=== PATIENT | female | born 1985 | race Hispanic/Latino ===

== ENCOUNTER 2018-02-09 23:26 | Emergency (ER) | payer SELFPAY ==
[2018-02-10 00:18] LABS: #Eosinphils 0.1 thou/uL (0.0-0.7); #Lymphocytes 3.2 thou/uL (1.20-3.40); #Monocytes 0.5 thou/uL (0.11-0.59); #Neutrophils 4.4 thou/uL (1.40-6.50); %Basophils 0.3 % (0.0-1.0); %Eosinophils 1.4 % (0.0-10.0); %Lymphocytes 38.2 % (21.0-51.0); %Monocytes 6.3 % (0.0-10.0); %Neutrophils 53.7 % (42.0-75.0); Hemoglobin 13.8 g/dL (12.0-16.0); Mean Corpuscular HGB CONC 35.4 g/dL (32.0-36.0); Mean Corpuscular Hemoglobin 31.4 pg (27.0-31.0); Mean Corpuscular Volume 88.6 fl (81.0-99.0); Mean Platelet Volume 8.2 fL (7.4-10.4); Platelet Count 240 thou/uL (130-400); RBC Distribution Width 11.5 % (11.5-14.5); White Blood Cell (WBC) Count 8.3 thou/uL (4.8-10.8)
[2018-02-10 00:35] LABS: BHCG - Serum Negative (NEGATIVE); Pregs Control Background? CLEAR/WHITE (CLR/WHITE); Pregs Control Bar Appear? YES (CONTROL BAR)
[2018-02-10 00:43] LABS: ALT (SGPT) 9 U/L (8-55); AST (SGOT) 11 U/L (5-34); Albumin 4.5 g/dL (3.5-5.0); Alkaline Phosphatase 45 U/L (40-150); Anion Gap 16 mmol/L (10-20); BUN (Urea Nitrogen) 10 mg/dL (7.0-18.7); Bilirubin, Total 0.3 mg/dL (0.2-1.2); CK (CPK) 46 U/L (29-168); Calc. Creatinine Clearance 0 mL/min (70-130); Calcium 9.5 mg/dL (7.8-10.44); Carbon Dioxide 20 mmol/L (22-29); Chloride 106 mmol/L (98-107); Estimated GFR-MDRD Greater than 90; Globulin 3.4 g/dL (2.4-3.5); Glucose 136 mg/dL (70-105); Lipase 37 U/L (8-78); Potassium 3.4 mmol/L (3.5-5.1); Protein, Total 7.9 g/dL (6.0-8.3); Sodium 139 mmol/L (136-145)
[2018-02-10 00:46] LABS: CKMB 0.6 ng/mL (0-6.6); Troponin I Less than 0.010 ng/mL (< 0.028)
--- NOTE | 2018-02-10 08:25 | RAD ---
UPRIGHT PORTABLE CHEST 1 VIEW: Date: 02/09/18 HISTORY: 32-year-old female with history of dyspnea and difficulty breathing. COMPARISON: 05/20/05. FINDINGS: Heart size is normal. The lungs are clear. No pneumonia, edema, or pleural effusion. IMPRESSION: No acute intrathoracic disease. No evidence for pneumonia or other acute process. POS: [facility]
== END 2018-02-10 01:05 | disposition home or self-care (01) ==
LOC: ERS 23:26
DX: F43.0 Acute stress reaction (principal)
CPT/HCPCS: 71045; 80053; 82553; 83690; 84484; 84703; 85025; 93005

== ENCOUNTER 2018-09-23 00:13 | Emergency (ER) | payer SELFPAY ==
[2018-09-23 01:04] LABS: Bilirubin Negative (Negative); Blood, Urine Small (Negative); Clarity CLEAR (Clear); Glucose, Urine (Dipstick) Negative (Negative); Leukocyte Negative (Negative); Nitrite Negative (Negative); Protein, Urine (Dipstick) Negative (Neg-Trace); Specific Gravity, Urine 1.017 (1.002-1.036); Urobilinogen 0.2 mg/dL (0.2-1.0)
[2018-09-23 01:05] LABS: Bacteria/HPF None Seen HPF (None Seen); Hyaline Casts/LPF 0-3 HYALINE CAST LPF (0-3 Hyaline); Pathc Cast-AUWi Flag 0.14 (0-2.49); Squamous Epithelial 0-3 HPF (0-3); WBC/HPF 0-3 HPF (0-3)
[2018-09-23 01:12] LABS: #Basophils 0.1 thou/uL (0.0-0.2); #Eosinphils 0.1 thou/uL (0.0-0.7); #Lymphocytes 3.5 thou/uL (1.20-3.40); #Monocytes 0.7 thou/uL (0.11-0.59); #Neutrophils 4.6 thou/uL (1.40-6.50); %Basophils 0.6 % (0.0-1.0); %Eosinophils 1.3 % (0.0-10.0); %Lymphocytes 38.5 % (21.0-51.0); %Monocytes 8.2 % (0.0-10.0); %Neutrophils 51.5 % (42.0-75.0); Hemoglobin 11.9 g/dL (12.0-16.0); Mean Corpuscular HGB CONC 35.1 g/dL (32.0-36.0); Mean Corpuscular Hemoglobin 30.9 pg (27.0-31.0); Mean Corpuscular Volume 88.2 fL (78.0-98.0); Mean Platelet Volume 8.8 fL (7.4-10.4); Platelet Count 222 thou/uL (130-400); RBC Distribution Width 11.5 % (11.5-14.5); Red Blood Cell (RBC) Count 3.84 mill/uL (4.20-5.40)
--- NOTE | 2018-09-23 16:49 | ULT ---
PRELIMINARY REPORT/[facility]/EMERGENTY AFTER-HOURS PROCEDURE US First Trimester, Transabdominal and US Duplex Artery and Vein, Ovaries, Complete EXAM DATE/TIME: 09/23/2018 2:58 AM CLINICAL HISTORY: 33 years old, female; Pain; Other: Cramping, +preg; Gestational age or lmp: 7wks; ; Prior surgery; Surgery date: 6+ months; Surgery type: TECHNIQUE: Real-time transabdominal obstetrical ultrasound of the maternal pelvis and a first trimester pregnanc y, less than 14 weeks 0 days, with image documentation. Real-time duplex ultrasound scan of the arter ial and venous flow of the ovaries with B-mode, color Doppler flow and spectral waveform analysis, complete duplex. COMPARISON: No relevant prior studies available. FINDINGS: Transabdominal obstetrical ultrasound was performed. Duplex ultrasound scan with color Doppler flow a nd spectral waveform analysis was also performed for evaluation of pelvic and ovarian blood flow and torsion. Gestation: Single, living intrauterine gestation. heart rate 145 beats per minute. CRL 1.27 cm, 7w3d. Yolk sac visualized. Placenta/amniotic fluid: Cannot be adequately evaluated due to the early gestational age. Unremarkabl e as visualized. Uterus/cervix: No acute findings. No myometrial mass. Right adnexa: Right ovarian probable corpus luteum. Otherwise unremarkable. Normal duplex of the ovar y. No evidence of torsion. Left adnexa: No acute findings. No mass. Normal duplex of the ovary. No evidence of torsion. Free fluid: No free fluid. IMPRESSION: Single viable intrauterine . No acute findings. Thank you for allowing us to participate in the care of your patient. Dictated and Authenticated by: Jose Barrientos MD 09/23/2018 4:07 AM Central Time ([place] & [place]) FINAL REPORT PELVIC UTLRASOUND: There is a viable single intrauterine . I am in agreement with the preliminary report. POS: [facility]
== END 2018-09-23 04:43 | disposition home or self-care (01) ==
LOC: ERS 00:13
DX: O20.0 Threatened abortion (principal); O99.341 Other mental disorders complicating pregnancy, first trimester; F41.9 Anxiety disorder, unspecified; Z3A.01 Less than 8 weeks gestation of pregnancy
CPT/HCPCS: 36415; 76856; 81003; 81015; 84702; 85025; 86900; 86901

== ENCOUNTER 2018-12-18 14:36 | Outpatient (CLI) | payer OTHER ==
--- NOTE | 2018-12-18 17:30 | ULT ---
ULTRASOUND OBSTETRICAL COMPLETE: 12/18/18 HISTORY: 33-year-old female for complete anatomy, size, and dates. O09.892, supervision of other high risk pregnancies, second trimester. FINDINGS: number: Emerson. lie: Footling breech. Maternal cervix: 4 cm in length and closed. Placenta: Posterior. No placenta previa. Amniotic fluid volume: ROBERTO 9.5 cm. heart rate: 153 bpm The following anatomy is visualized, with no evidence of anomalies: Head, lateral ventricles, cerebellum, nose and lips, spine, upper limbs, lower limbs, four chamber he art, umbilical cord, cord insertion, stomach, kidneys, and bladder. biometry: Head circumference (HC): 17.7 cm 20w 2d Biparietal diameter (BPD): 4.7 cm 20w 2d Abdominal circumference (AC): 17.2 cm 22w 2d Femur length (FL): 3.2 cm 20w 0d Average ultrasound age (AUA): 20w 5d Estimated date of delivery (THONY): 05/02/2019 Last menstrual period (LMP): 07/31/2018 Gestational age by LMP: 20w 0d Estimated weight (EFW): 392 grams +/- 57 grams. IMPRESSION: 1. Live second trimester intrauterine gestation. 2. Estimated gestational age of 20 weeks, 5 days. 3. Footling breech lie. 4. No anatomical abnormalities. jn [] POS: [facility]
== END 2018-12-18 14:37 | disposition home or self-care (01) ==
LOC: BICULT 14:36
PROVIDERS: ATTEND Family Medicine
DX: O09.892 Supervision of other high risk pregnancies, second trimester (principal); O32.8XX0 Maternal care for other malpresentation of fetus, not applicable or unspecified; Z3A.20 20 weeks gestation of pregnancy
CPT/HCPCS: 76805

== ENCOUNTER 2019-02-16 01:51 | Day surgery (SDC) | payer OTHER ==
[2019-02-16 02:25] VITALS: BP 111/58; TEMP 98.7; BMI 26.4
--- NOTE | 2019-02-16 02:38 | PDOC.FPROB ---
R OB H&P: HPI - History of Present Illness Chief Complaint: RLQ pain Indentification: 33 year old History of Present Illness: 33 year old at 28.4 wks with THONY 05/07/2019 presents with gradually worsening lower abdominal pain upon finishing work this evening around 20:00. Patient works as [employer] and is on feet much of the day. Patient states the pain is sharp and radiates from RLQ to RUQ. She states she tried to take a shower and rest in hopes that it would get better, but it seemed to get worse. Patient decided to come to ED for evaluation. She says over the last hour her pain has been minimal. She does not feel it is strong enough for pain medication , including tylenol at this time. Patient denies vaginal bleeding. She does state that she felt her panties were a little wet at the end of work. She never felt a gush of fluid or noticed any leaking after the fact. Patient states she felt like she had two contractions. She denies dysuria, N/V, decreased appetite , fever, chills, shortness of breath, chest pain. Primary Care Physician: Dr. Good FMR OB H&P: Current - Care : 3 Para: 2002 Gestational age: 28.4 wks Due date: 05/07/2019 FMR OB H&P: History - Past Medical History PMH: Denies any pertinent history - OB History OB History: Low transverse C/S x2 - Surgical History Sx History: C/S x2 - Social History Social History: Denies alcohol, tobacco, or drug use FMR OB H&P: Medications - Current Home Medications: Medication Instructions Recorded Confirmed Type Ondansetron [Zofran ODT] 4 mg PO Q6HR PRN 5 Days #20 tab 01/19/19 02/16/19 Rx Vitamin 1 tablet PO DAILY 01/19/19 02/16/19 History Allergies/Adverse Reactions: Allergies Allergy/AdvReac Type Severity Reaction Status Date / Time No Known Allergies Allergy Verified 02/16/19 02:11 FMR OB H&P: ROS - Review of Systems General: denies: fever/chills, weight/appetite/sleep changes, fatigue Eyes: denies: vision changes, double vision ENT: denies: nasal congestion, rhinorrhea, sore throat Cardiovascular: denies: chest pain, palpitation, edema Respiratory: denies: cough, congestion, shortness of breath Gastrointestinal: reports: abdominal pain. denies: indigestion, bloating, nausea, vomiting, diarrhea, constipation Genitourinary (Female): reports: polyuria. denies: dysuria, vaginal discharge, vaginal pain, vaginal bleeding, vaginal pressure Musculoskeletal: denies: pain, stiffness, tenderness Neurologic: denies: numbness, syncope, seizures Integumentary: denies: itching, rash Endocrine: denies: cold intolerance Hematologic/Lymphatic: denies: prolonged or excessive bleeding Psychological: denies: depression, anxiety FMR OB H&P: Vital Signs - Maternal Vital signs: Vital Signs - First Documented Temp Pulse Resp BP 98.7 F 85 16 111/58 L 02/16/19 02:02 02/16/19 02:02 02/16/19 02:02 02/16/19 02:02 - Heart Tones Baseline: 150 Variability: moderate Acceleration: present Deceleration: absent Category: category 1 Buhl contractions every: None FMR OB H&P: Physical Exam - Physical Exam General: NAD, awake, alert and oriented HEENT: MMM, grossly normal vision, grossly normal hearing Heart: RRR General: no respiratory distress, no wheezing, no retractions Abdomen: soft, gravid Musculoskeletal: pulses present, FROM in all four extremities Neurological: cranial nerves II through XII intact Skin: no rash, capillary refill <2 seconds Lymphatic: no unusual bruising or bleeding Psychiatric: intact recent and remote memory, good judgement and insight FMR OB H&P: A/P - Problem List (1) Intrauterine Current Visit: Yes Status: Acute Code(s): Z34.90 - ENCNTR FOR SUPRVSN OF NORMAL , UNSP, UNSP TRIMESTER (2) Abdominal pain affecting Current Visit: Yes Status: Acute Code(s): O26.899 - OTH RELATED CONDITIONS, UNSPECIFIED TRIMESTER; R10.9 - UNSPECIFIED ABDOMINAL PAIN Disposition: 33 year old at 28.4 wks 1. Abdominal pain affecting - Pain has improved without any interventions since arriving to L&D - Located in RLQ, radiating to RUQ - No peritoneal signs - UA negative - Afebrile - CBC and CMP WNL - Given neg UA (no blood) and resolution of pain, low suspicion for kidney stone - Possible round ligament pain - RUQ sono prelim report with small gallbladder polyp. Otherwise WNL. Mild hydro consistent with . - Given that pain is already resolving with no intervention, low suspicion for appendicitis, particularly with no normal vitals and no WBC. - PO hydrate 2. sIUP - Category I strip - No evidence of labor Dispo: Likely round ligament pain vs. gas pain. Patient advised to take 1g Tylenol as needed q6h for pain. Patient advised to follow up with Dr. Good early next week. Patient stable and asymptomatic prior to discharge without any interventions. Discussion: Date/Time: 02/16/19237 This H&P was discussed with Dr. Reese who agrees with the above documentation and plan. Signature: Nallely Palacios, DO PGY-2
[2019-02-16] MEDS ORDERED: Acetaminophen 500 MG TAB PO SCH (02:45)
[2019-02-16 03:02] LABS: Bilirubin Negative (Negative); Blood, Urine Negative (Negative); Clarity TURBID (Clear); Glucose, Urine (Dipstick) Negative (Negative); Leukocyte Negative (Negative); Nitrite Negative (Negative); Protein, Urine (Dipstick) Negative (Neg-Trace); Specific Gravity, Urine 1.015 (1.002-1.036)
[2019-02-16 03:59] LABS: #Eosinphils 0.2 thou/uL (0.0-0.7); #Lymphocytes 2.8 thou/uL (1.20-3.40); #Monocytes 0.9 thou/uL (0.11-0.59); #Neutrophils 6.3 thou/uL (1.40-6.50); %Basophils 0.2 % (0.0-1.0); %Eosinophils 1.8 % (0.0-10.0); %Lymphocytes 26.9 % (21.0-51.0); %Monocytes 9.2 % (0.0-10.0); Hemoglobin 10.7 g/dL (12.0-16.0); Mean Corpuscular HGB CONC 35.3 g/dL (32.0-36.0); Mean Corpuscular Hemoglobin 32.2 pg (27.0-31.0); Mean Corpuscular Volume 91.2 fL (78.0-98.0); Mean Platelet Volume 8.3 fL (7.4-10.4); Platelet Count 205 thou/uL (130-400); RBC Distribution Width 11.9 % (11.5-14.5); Red Blood Cell (RBC) Count 3.34 mill/uL (4.20-5.40); White Blood Cell (WBC) Count 10.2 thou/uL (4.8-10.8)
[2019-02-16 04:23] LABS: ALT (SGPT) 8 U/L (8-55); AST (SGOT) 10 U/L (5-34); Albumin 3.3 g/dL (3.5-5.0); Alkaline Phosphatase 48 U/L (40-150); Anion Gap 13 mmol/L (10-20); BUN (Urea Nitrogen) 9 mg/dL (7.0-18.7); Bilirubin, Total 0.2 mg/dL (0.2-1.2); Calc. Creatinine Clearance 133 mL/min (70-130); Carbon Dioxide 19 mmol/L (22-29); Chloride 108 mmol/L (98-107); Estimated GFR-MDRD Greater than 90; Globulin 2.8 g/dL (2.4-3.5); Glucose 102 mg/dL (70-105); Potassium 3.5 mmol/L (3.5-5.1); Protein, Total 6.1 g/dL (6.0-8.3); Sodium 136 mmol/L (136-145)
--- NOTE | 2019-02-16 07:17 | ULT ---
RIGHT UPPER QUADRANT ULTRASOUND: Date: 02/16/19 INDICATION: Abdominal pain, right-sided, patient. FINDINGS: No shadowing cholelithiasis. There is a rounded focal increased echogenicity along the gallbladder wa ll, nonshadowing, 3-4 mm in size, which could relate to a polyp, versus an adherent, nonshadowing sto ne. Gallbladder wall is borderline. No pericholecystic edema. Cowan's sign reported as negative. There is no focal hepatic lesion or ascites. Common duct measures approximately 6 mm, which is mildly dilated. IMPRESSION: 1. Mildly dilated common duct. Recommend correlation with biliary laboratory values. 2. Probable small gallbladder polyp versus adherent nonshadowing gallstone. There is no sonographic evidence to confirm acute cholecystitis. Correlate clinically. RIGHT LOWER QUADRANT SOFT TISSUE ULTRASOUND: INDICATION: Right-sided abdominal pain. FINDINGS: Sonographic imaging of the right lower quadrant reveals persistent shadowing from bowel. An appendix is not delineated. Incidental note of a partially imaged gestation. IMPRESSION: The appendix is not delineated within the right lower quadrant. Therefore, on the basis of this exam, appendicitis cannot be excluded. Follow-up may be obtained as clinically necessary. POS: [facility]
== END 2019-02-16 05:00 | disposition home or self-care (01) ==
LOC: L&D/OP 01:51
PROVIDERS: ATTEND Family Medicine
DX: O99.89 Other specified diseases and conditions complicating pregnancy, childbirth and the puerperium (principal); R10.31 Right lower quadrant pain; Z3A.28 28 weeks gestation of pregnancy
CPT/HCPCS: 36415; 76705; 80053; 81003; 85025; 99283; A4353

== ENCOUNTER 2019-03-17 01:24 | Day surgery (SDC) | payer OTHER ==
[2019-03-17 02:00] VITALS: BP 107/60; TEMP 97.7; BMI 28.9
--- NOTE | 2019-03-17 02:07 | PDOC.FPROB ---
FMR OB H&P: Medications - Current Home Medications: Medication Instructions Recorded Confirmed Type Ondansetron [Zofran ODT] 4 mg PO Q6HR PRN 5 Days #20 tab 01/19/19 02/16/19 Rx Vitamin 1 tablet PO DAILY 01/19/19 02/16/19 History Cephalexin [Keflex] 500 mg PO BID 5 Days #10 capsule 03/17/19 Rx Allergies/Adverse Reactions: Allergies Allergy/AdvReac Type Severity Reaction Status Date / Time No Known Allergies Allergy Verified 03/17/19 02:00 FMR OB H&P: Vital Signs - Maternal Vital signs: Vital Signs - First Documented Temp Pulse Resp BP Pulse Ox 97.7 F 89 18 107/60 98 03/17/19 01:56 03/17/19 01:56 03/17/19 01:56 03/17/19 01:56 03/17/19 01:56 FMR OB H&P: A/P - Problem List (1) Abdominal pain affecting Current Visit: No Status: Acute Code(s): O26.899 - OTH RELATED CONDITIONS, UNSPECIFIED TRIMESTER; R10.9 - UNSPECIFIED ABDOMINAL PAIN Discussion: Date/Time: 03/17/19 020 PCP: Florentino HPI: This is a 33 yo at 32.5 wks presenting for abdominal pain starting at 1045 tonight. She states she has cramping abdominal pain that started in the suprapubic region and is now radiating to the back. She denies fevers, chills, sweats. She denies N/V/D. She denies burning or blood with urination. She states she thinks it could be contractions because it comes every 5 minutes but does not remember what contractions feels like. She affirms movement, denies ROM, denies bleeding/discharge. Denies KEE, visual changes, SOB, or swelling. History: OB hx: 2 previous term c/s PMH: neg PSH: c/s x2 Meds: PNV All: NKDA Soc Hx: denies smoking, alcohol, drugs Fam Hx: denies downs, congenital defects REVIEW OF SYSTEMS: Gen: no fever, chills, or sweats Neuro: no numbness/tingling, no weakness, denies headache ENT: denies congestion Eyes: no visual changes Resp: no cough, no SOB, no wheeze Card: denies chest pain, no palpitations GI: see hpi : no dysuria, no hematuria Skin: no rash, no erythema Vitals: T: 97.7 R: 18 BP: 107/60 P:89 Sat: 98% on RA PHYSICAL EXAMINATION: General: NAD, alert and oriented x3 HEENT: EOMI, normal sclera Neck: Supple. Full ROM. Heart/Cardiovascular System: RRR, Cap refill < 3 seconds, no rub, no murmur Lungs/Respiratory System: clear to auscultation bilaterally. No increased work of breathing. Room air. Abdomen/Gastro-Intestinal System: no abdominal tenderness, normal bowel sounds, Gravid, no cva tenderness Extremities: Warm extremities. No cyanosis or edema. Neuro: No gross deficits appreciated Psychiatry: Awake, Alert and cooperative with exam Skin: No lesions, rashes Musculoskeletal: Full ROM A/P: This is a 33 yo at 32.5 wks presenting for abdominal pain FHT: baseline 140, good variability, accels present, no decels [place]: no contractions # Urinary tract infection - WBC 8.5, afebrile - Renal US shows no obstruction mild hydronephrosis as expected with , good uretral jets bilaterally - UA with trace blood, stone possible but unlikely - will d/c home with keflex # - spec exam shows closed cervix - amnisure negative - SVE cl/th/high # Anxiety - advised to f/u in clinic to discuss counseling referral Labor precautions discussed at length, questions answered, patient will follow up in clinic this week Addendum - Attending - Attending Attestation Date/Time: 03/17/19 3435 I personally evaluated the patient and discussed the management with Dr. Carreon. I agree with the History, Examination, Assessment and Plan documented above.
[2019-03-17] MEDS ORDERED: Morphine 4 MG/ML VIAL SLOW IVP SCH (02:15)
[2019-03-17] MEDS ORDERED: Lactated Ringer's 1,000 ML IV SCH (02:15)
[2019-03-17 02:32] LABS: Bacteria/HPF 1+ HPF (None Seen); Bilirubin Negative (Negative); Blood, Urine Trace (Negative); Clarity Clear (Clear); Glucose, Urine (Dipstick) Normal (Negative); Leukocyte 250 Leu/uL (Negative); Nitrite Negative (Negative); Protein, Urine (Dipstick) Negative (Neg-Trace); RBC/HPF 0-3 HPF (0-3); Urobilinogen Normal mg/dL (Less than 2); WBC/HPF 21-50 HPF (0-3)
[2019-03-17 03:06] LABS: Hemoglobin 10.5 g/dL (12.0-16.0); Mean Corpuscular HGB CONC 35.2 g/dL (32.0-36.0); Mean Corpuscular Hemoglobin 32.1 pg (27.0-31.0); Mean Corpuscular Volume 91.2 fL (78.0-98.0); Mean Platelet Volume 8.6 fL (7.4-10.4); Platelet Count 181 thou/uL (130-400); RBC Distribution Width 12.2 % (11.5-14.5); Red Blood Cell (RBC) Count 3.28 mill/uL (4.20-5.40); White Blood Cell (WBC) Count 8.5 thou/uL (4.8-10.8)
[2019-03-17 03:10] LABS: Amnisure Internal Control QC ACCEPTABLE (ACCEPTABLE)
[2019-03-17 03:18] LABS: Amnisure Test No Membranes Rupture (No Rupture)
[2019-03-17 03:34] LABS: ALT (SGPT) 7 U/L (8-55); AST (SGOT) 16 U/L (5-34); Albumin 3.3 g/dL (3.5-5.0); Alkaline Phosphatase 58 U/L (40-150); Anion Gap 13 mmol/L (10-20); BUN (Urea Nitrogen) 9 mg/dL (7.0-18.7); Bilirubin, Total 0.3 mg/dL (0.2-1.2); Calc. Creatinine Clearance 151 mL/min (70-130); Carbon Dioxide 21 mmol/L (22-29); Chloride 108 mmol/L (98-107); Estimated GFR-MDRD Greater than 90; Glucose 94 mg/dL (70-105); Potassium 3.5 mmol/L (3.5-5.1); Protein, Total 6.3 g/dL (6.0-8.3); Sodium 138 mmol/L (136-145)
--- NOTE | 2019-03-17 07:46 | ULT ---
RENAL ULTRASOUND: Boswell scale and Doppler color flow imaging utilized. COMPARISON: 01/19/2019. INDICATION: Abdominal pain. History of mild hydronephrosis with clinical suspicion for urinary stone. FINDINGS: There is an intrauterine gestation partially imaged. The right kidney measures 13.1 cm in length and the left kidney 12.9 cm in length. The left kidney i s unremarkable. There is minimal dilatation of the right renal collecting system without overt hydro nephrosis. Urinary bladder is grossly unremarkable. Ureteral jets are elicited bilaterally using Do ppler imaging. IMPRESSION: Trace dilatation of right renal collecting system without overt hydronephrosis. POS: [facility]
== END 2019-03-17 03:45 | disposition home or self-care (01) ==
LOC: L&D/OP 01:24
PROVIDERS: ATTEND Family Medicine
DX: O26.893 Other specified pregnancy related conditions, third trimester (principal); R10.2 Pelvic and perineal pain; O23.43 Unspecified infection of urinary tract in pregnancy, third trimester; O99.343 Other mental disorders complicating pregnancy, third trimester; F41.9 Anxiety disorder, unspecified; Z3A.32 32 weeks gestation of pregnancy
CPT/HCPCS: 36415; 51701; 76770; 80053; 81003; 81015; 84112; 85027; 96360; 96375; 99285; J2270

== ENCOUNTER 2019-04-29 04:30 | Inpatient (IN) | payer OTHER, SELFPAY ==
[2019-04-29] MEDS: Lactated Ringer's 1,000 ML IV SCH ×5 (05:06→21:28)
[2019-04-29 05:35] VITALS: BMI 31.2
[2019-04-29] MEDS ORDERED: CEFAZOLIN 2 GM in Premix Bag 1 BAG IVPB SCH (08:30)
[2019-04-29] MEDS ORDERED: Bicitra 30 ML UDCUP PO SCH (08:30)
[2019-04-29] MEDS ORDERED: Ondansetron PF 4 MG/2 ML Vial IVP PRN ×3 (08:30→20:20)
[2019-04-29] MEDS ORDERED: Promethazine HCl 25 MG/ML VIAL IM PRN ×3 (08:30→20:20)
[2019-04-29] MEDS ORDERED: Butorphanol Tartrate 1 MG/ML VIAL SLOW IVP SCH (08:30)
[2019-04-29] MEDS ORDERED: hydrALAZINE 20 MG/ML VIAL SLOW IVP PRN ×2 (08:30→20:20)
[2019-04-29] MEDS ORDERED: Azithromycin 500 MG in Sodium Chloride 0.9% 250 ML 250 ML IVPB SCH (08:30)
[2019-04-29] MEDS ORDERED: Ondansetron PF 4 MG/2 ML Vial ONE ×3 (08:39→15:48)
[2019-04-29 09:39] LABS: Mean Corpuscular HGB CONC 34.7 g/dL (32.0-36.0); Mean Corpuscular Hemoglobin 31.3 pg (27.0-31.0); Mean Corpuscular Volume 90.1 fL (78.0-98.0); Platelet Count 183 thou/uL (130-400); RBC Distribution Width 12.9 % (11.5-14.5); Red Blood Cell (RBC) Count 3.82 mill/uL (4.20-5.40); White Blood Cell (WBC) Count 8.8 thou/uL (4.8-10.8)
[2019-04-29 10:19] LABS: HBSAg Index 0.16 S/CO (0-0.99); Hep B Surf Ag Non-Reactive S/CO (NonReactive); Syphilis Antibody Nonreactive (Nonreactive); Syphilis Antibody Index 0.06 S/CO (<1.00 Non-Reactive)
[2019-04-29] MEDS ORDERED: Dexamethasone 20 MG/5 ML VIAL ONE (13:01)
[2019-04-29] MEDS ORDERED: ePHEDrine 50 MG/ML VIAL ONE (13:01)
[2019-04-29] MEDS ORDERED: PROPOFOL 200 MG/20 ML VIAL ONE (13:01)
[2019-04-29] MEDS ORDERED: PHENYLEPHRINE-NS 100 MCG/ML 10 ML SYRINGE ONE (13:01)
[2019-04-29] MEDS ORDERED: MORPHINE 5 MG/10 ML PF VIAL ONE (15:47)
[2019-04-29] MEDS ORDERED: Fentanyl 100 MCG/2 ML VIAL ONE (15:47)
[2019-04-29] MEDS ORDERED: ePHEDrine/0.9% NaCl/PF SYRINGE 50 mg/10 ml ONE (15:48)
[2019-04-29] MEDS ORDERED: Ketorolac Tromethamine 30 MG/ML VIAL ONE (15:48)
[2019-04-29] MEDS ORDERED: Dexamethasone 4 mg/ml Vial ONE (15:48)
[2019-04-29] MEDS ORDERED: Oxytocin 10 UNITS/ML VIAL ONE (15:48)
[2019-04-29] MEDS ORDERED: Phenylephrine HCL 10 MG/ML VIAL ONE (15:49)
[2019-04-29] MEDS ORDERED: Midazolam HCl 2 mg/2 ml Vial ONE (16:42)
[2019-04-29] MEDS ORDERED: PROPOFOL 20 ML ONE (17:09)
[2019-04-29] MEDS ORDERED: Ketamine 50 MG/ML (10ML VIAL) ONE (17:14)
[2019-04-29] MEDS ORDERED: Promethazine HCl 25 MG SUPP PR PRN (17:52)
[2019-04-29] MEDS ORDERED: Naloxone HCl 0.4 mg/ml Vial IV PRN (17:52)
[2019-04-29] MEDS ORDERED: HYDROmorphone 2 MG/ML VIAL SLOW IVP PRN (17:52)
[2019-04-29] MEDS ORDERED: Ondansetron HCl/PF 4 MG/2 ML Vial IVP PRN (17:52)
[2019-04-29] MEDS ORDERED: diphenhydrAMINE 50 MG/ML VIAL IVP PRN (17:52)
[2019-04-29] MEDS ORDERED: Naloxone HCl 0.4 mg/ml Vial IVP PRN ×2 (17:52)
[2019-04-29] MEDS ORDERED: L&D-Morphine 4 MG/ML VIAL SLOW IVP PRN (17:52)
[2019-04-29] MEDS ORDERED: Meperidine HCl/PF 25 MG/ML VIAL SLOW IVP PRN (17:52)
[2019-04-29] MEDS ORDERED: Communication Order-Pharmacy FS SCH (18:00)
[2019-04-29] MEDS ORDERED: Tranexamic Acid 1,000 MG/10 ML VIAL ONE ×2 (18:04→18:44)
[2019-04-29] MEDS ORDERED: Tranexamic Acid 1,000 MG in Sodium Chloride 0.9% 250 ML 250 ML IVPB SCH (18:10)
[2019-04-29] MEDS: Tranexamic Acid 1,000 MG, Admixture Fee 1 EACH in Sodium Chloride 0.9% 250 ML 250 ML IVPB SCH ×2 (18:50→19:08)
[2019-04-29] MEDS: metroNIDAZOLE 500 MG in Premix Bag 1 BAG IVPB SCH (19:12)
[2019-04-29] MEDS ORDERED: Meperidine HCl/PF 25 MG/ML VIAL ONE (19:41)
[2019-04-29] MEDS ORDERED: Lanolin Ointment 7 GM TUBE TOP PRN (20:20)
[2019-04-29] MEDS ORDERED: Simethicone Chewable 80 MG TAB PO PRN (20:20)
[2019-04-29] MEDS ORDERED: diphenhydrAMINE 25 MG CAP PO PRN (20:20)
[2019-04-29] MEDS ORDERED: Bisacodyl 10 MG SUPP PR PRN (20:20)
[2019-04-29] MEDS ORDERED: NS / Oxytocin 40 units/1000ml 1,000 ML IV SCH (20:45)
[2019-04-29] MEDS: Ferrous Sulfate 325 MG TAB PO SCH (21:29)
[2019-04-29] MEDS: Docusate Calcium (SURFAK) 240 MG CAP PO SCH (21:29)
[2019-04-29] MEDS ORDERED: Sodium Chloride 0.9% 10 ML ONE (21:49)
[2019-04-29] MEDS: Ketorolac Tromethamine 30 MG/ML VIAL IVP PRN (21:52)
[2019-04-29] MEDS ORDERED: Ibuprofen 800 MG TAB PO SCH (22:00)
--- NOTE | 2019-04-29 23:27 | OP ---
DATE OF PROCEDURE: 04/29/2019 BOAT CARPENTER: None. PREPROCEDURE DIAGNOSIS: Intraoperative obstetric bladder injury. POSTPROCEDURE DIAGNOSIS: Intraoperative obstetric bladder injury. PROCEDURE: Complex cystorrhaphy, 8 cm in length. ANESTHESIA: Epidural anesthesia. COMPLICATIONS: None. FLUIDS: See anesthesia record. BLOOD LOSS: Minimal. SPECIMENS: None. POSTPROCEDURE STATUS: Satisfactory. INDICATIONS FOR PROCEDURE: Ms. Jay Palafox is a 33-year-old female who was undergoing , this is her 3rd . Evidently, there were significant adhesions of the dome of the bladder to the uterus. During the , a large vertical cystotomy was made at the dome extending down the anterior wall of the bladder. This is approximately 8 to 9 cm in length. Urology was consulted for repair of this. PROCEDURE SUMMARY: Upon entering to the operating room, the patient was on the table in a supine position. She was talking to the anesthesia provider. She was under epidural/spinal anesthesia. The low abdomen was opened. The uterus had already been repaired. There was an 8 to 9 cm cystotomy at the dome of the bladder extending down the anterior wall in a vertical orientation. We inspected the bladder and there were no mucosal lesions of concern. We identified both ureteral orifices and the cystotomy was well away from these, the Freed catheter was seen with the balloon inflated. This cystotomy was closed in 2 layers, starting with a 3-0 chromic mucosal layer starting at each apex and meeting in the middle and then a 2nd layer was 2-0 Vicryl starting at each apex and meeting in the middle. A 240 mL of sterile milk was instilled into the bladder at the end of the case and the closure was watertight. A Freed catheter was placed to drainage. This procedure was then turned back over to the primary physician. PLAN: The patient's Freed catheter should remain in place for 7 to 10 days. A cystogram can be performed prior to removal to ensure that it has completely healed. Job ID: [id number]
[2019-04-29] MEDS: CEFAZOLIN 2 GM in Premix Bag 1 BAG IVPB SCH (23:46)
--- NOTE | 2019-04-30 01:32 | OP ---
DATE OF PROCEDURE: 04/29/2019 PREOPERATIVE DIAGNOSES: 1. Term . 2. Previous section x2. 3. Persistent painful contractions. POSTOPERATIVE DIAGNOSES: 1. Term . 2. Previous section x2. 3. Persistent painful contractions. 4. Dense intraabdominal adhesions between the uterine fundus and anterior abdominal wall. PROCEDURE PERFORMED: 1. Repeat low cervical transverse . 2. Bladder repair. DOLL WIG MAKER: . INTRAOPERATIVE CONSULTATION: Dr. Paige. DESCRIPTION OF PROCEDURE: After informed consent was obtained from the patient , she was taken operating room where spinal anesthesia was administered. She was prepped and draped in the usual sterile fashion. A Pfannenstiel incision was created with a #10 scalpel blade and carried down to the fascia. The fascia was nicked in the midline and the fascial incision was extended transversely with Martinez scissors. The superior fascial segment was grasped with Tal and elevated and the underlying rectus muscles were dissected away first bluntly and then sharply. This was repeated with inferior fascial segments. The rectus muscles were elevated with a Tal and were divided sharply in the midline with Martinez scissors. There were dense adhesions bilaterally along both sides of the uterus, which were taken down with Metzenbaum scissors and the Bovie. Metzenbaum scissors were used to dissect away the bladder from the lower uterine segment as much as possible. It was found to be densely adherent to the anterior abdominal wall as well. The bladder blade was inserted. At this point, clear pale yellow urine was noted to be draining into the gustafson catheter tubing. The uterus was entered in a low-transverse fashion with a clean #10 scalpel blade. Clear amniotic fluid was encountered. A hand was placed into the uterus and the vertex was elevated and delivered through the hysterotomy. The hand was removed to allow more space for the vertex to delivery through the abdomen. The head was able to be delivered onto the operative field with fundal pressure. The remainder of the delivered uneventfully. Oropharynx and nares were bulb suctioned. The cord was clamped x2 and a vigorous female was handed to the staff in attendance. Cord blood was obtained. The placenta was manually extracted. The uterus was exteriorized and freed of clots and debris. It was at this point that blood in the Gustafson was noted and examination of the bladder revealed a large defect in the dome of the bladder. Urology was consulted. Please refer to Dr. Paige's intraoperative or operative notes for details. While awaiting the arrival of Dr. Paige, the uterus was repaired with a running locking suture of 0-Vicryl in a single full-thickness layer followed by a series of interrupted [id number] sutures along the hysterotomy for hemostasis, which was observed. The abdomen was copiously irrigated with saline. Adhesions along the posterior uterus were diffusely oozing and Daniela was placed on these areas with hemostasis observed. After repair of the bladder by Dr. Paige, the uterus was returned to the abdomen. Hemostasis of the incision was again observed. Seprafilm was applied to the repaired uterine incision and the anterior uterine fundus. Small bleeders along the rectus muscles were cauterized with the Bovie. The fascia was repaired with a running suture of 0-PDS. Three interrupted sutures of 3-0 Vicryl were placed in the subdermal layer to reapproximate the skin, which was closed with skin odilon. Sponge, instrument counts were correct x3. She tolerated the procedure well and was taken to recovery in stable condition. The infant to the nursery also in stable condition. FINDINGS: Viable female infant, Apgars 9 nine and 9 at one and five minutes. COMPLICATIONS: Laceration of dome of the bladder due to intraabdominal adhesions and adhesions between the bladder and the anterior abdominal wall. EBL: 900 mL. Job ID: [id number] MTDD
[2019-04-30] MEDS: Lactated Ringer's 1,000 ML IV SCH ×6 (01:59→19:46)
[2019-04-30] MEDS: metroNIDAZOLE 500 MG in Premix Bag 1 BAG IVPB SCH ×3 (01:59→17:22)
[2019-04-30] MEDS ORDERED: metroNIDAZOLE 500 MG in Premix Bag 1 BAG IVPB SCH (02:00)
[2019-04-30 04:39] LABS: #Lymphocytes 1.7 thou/uL (1.20-3.40); #Monocytes 1.1 thou/uL (0.11-0.59); #Neutrophils 12.5 thou/uL (1.40-6.50); %Basophils 0.1 % (0.0-1.0); %Eosinophils 0.1 % (0.0-10.0); %Lymphocytes 11.2 % (21.0-51.0); %Monocytes 6.9 % (0.0-10.0); %Neutrophils 81.7 % (42.0-75.0); Hemoglobin 10.2 g/dL (12.0-16.0); Mean Corpuscular HGB CONC 35.7 g/dL (32.0-36.0); Mean Corpuscular Hemoglobin 32.7 pg (27.0-31.0); Mean Corpuscular Volume 91.5 fL (78.0-98.0); Mean Platelet Volume 8.6 fL (7.4-10.4); Platelet Count 167 thou/uL (130-400); RBC Distribution Width 12.6 % (11.5-14.5); Red Blood Cell (RBC) Count 3.13 mill/uL (4.20-5.40); White Blood Cell (WBC) Count 15.4 thou/uL (4.8-10.8)
[2019-04-30] MEDS: Ketorolac Tromethamine 30 MG/ML VIAL IVP PRN ×2 (05:03→12:23)
[2019-04-30] MEDS ORDERED: HYDROcodone/Acetaminophen 5/325 mg Tablet PO PRN (06:00)
[2019-04-30] MEDS ORDERED: Meperidine HCl/PF 25 MG/ML VIAL IM PRN (06:00)
[2019-04-30] MEDS: CEFAZOLIN 2 GM in Premix Bag 1 BAG IVPB SCH ×2 (08:28→15:51)
[2019-04-30] MEDS: Ferrous Sulfate 325 MG TAB PO SCH ×2 (08:29→22:36)
[2019-04-30] MEDS: Docusate Calcium (SURFAK) 240 MG CAP PO SCH ×2 (08:29→21:50)
[2019-04-30] MEDS: Prenatal Vitamin 1 TAB PO SCH (08:29)
[2019-04-30] MEDS ORDERED: Adacel (T-DAP) 0.5 ML SYRINGE IM ONE (09:00)
[2019-04-30] MEDS: HYDROcodone/Acetaminophen 5/325 mg Tablet PO PRN (17:27)
[2019-04-30] MEDS: Ibuprofen 800 MG TAB PO SCH (21:50)
--- NOTE | 2019-04-30 22:35 | PRG ---
DATE OF SERVICE: 04/30/2019 SUBJECTIVE: The patient is doing well overnight. No acute events. Freed catheter is draining clear yellow urine. No complaints. OBJECTIVE: VITAL SIGNS: Temperature 98.3, pulse 70s to 80s, respirations 18, oxygen saturation 97% on room air, blood pressure 90s over 50s. GENERAL: She is awake and alert. No apparent distress. CARDIOVASCULAR: Regular rate and rhythm. PULMONARY: Breathing unlabored. ABDOMEN: Soft, appropriately tender to palpation, nondistended. Incisions clean/dry/intact. GENITOURINARY: Freed catheter in place, draining clear yellow urine. EXTREMITIES: Warm, well perfused. No edema. ASSESSMENT: A 33-year-old female, postoperative day #1 status post with intraoperative bladder injury and resultant complex cystorrhaphy. PLAN: The patient is doing well. Freed is draining clear yellow urine. It should stay in place for 7-10 days to allow for complete bladder healing. Recommend cystogram prior to Freed removal. She can follow up with Urology for Freed removal or after the cystogram to follow up with the primary team for Freed removal. Thank you for allowing me to participate in the care of this patient. Job ID: [id number]
[2019-05-01] MEDS: CEFAZOLIN 2 GM in Premix Bag 1 BAG IVPB SCH ×3 (00:04→16:12)
[2019-05-01] MEDS: Lactated Ringer's 1,000 ML IV SCH (00:19)
[2019-05-01] MEDS: metroNIDAZOLE 500 MG in Premix Bag 1 BAG IVPB SCH ×3 (01:58→18:02)
[2019-05-01] MEDS: Ibuprofen 800 MG TAB PO SCH ×3 (06:17→21:04)
[2019-05-01] MEDS: Ferrous Sulfate 325 MG TAB PO SCH ×2 (09:39→21:04)
[2019-05-01] MEDS: Prenatal Vitamin 1 TAB PO SCH (09:39)
[2019-05-01] MEDS: Docusate Calcium (SURFAK) 240 MG CAP PO SCH ×2 (09:39→21:05)
[2019-05-01] MEDS: HYDROcodone/Acetaminophen 5/325 mg Tablet PO PRN ×3 (09:40→21:05)
[2019-05-02] MEDS: CEFAZOLIN 2 GM in Premix Bag 1 BAG IVPB SCH ×2 (00:27→08:41)
[2019-05-02] MEDS: metroNIDAZOLE 500 MG in Premix Bag 1 BAG IVPB SCH ×2 (02:04→09:24)
[2019-05-02] MEDS: Lactated Ringer's 1,000 ML IV SCH (02:12)
[2019-05-02] MEDS: Ibuprofen 800 MG TAB PO SCH ×2 (05:14→14:17)
[2019-05-02] MEDS ORDERED: Sodium Chloride 0.9% 10 ML ONE (08:37)
[2019-05-02] MEDS: Ferrous Sulfate 325 MG TAB PO SCH (09:05)
[2019-05-02] MEDS: Prenatal Vitamin 1 TAB PO SCH (09:05)
[2019-05-02] MEDS: Docusate Calcium (SURFAK) 240 MG CAP PO SCH (09:06)
[2019-05-02 12:12] VITALS: BP 112/58; TEMP 98.6
== END 2019-05-02 18:30 | disposition home or self-care (01) | DRG 787 ==
LOC: L&D/OP 04:30 → L&D 09:16 → 3SW 22:02
PROVIDERS: ADMIT Family Medicine; ATTEND Family Medicine
PROC: 0TQB0ZZ Repair Bladder, Open Approach (ICD-10-PCS; principal; 2019-04-29)
PROC: 10D00Z1 Extraction of Products of Conception, Low, Open Approach (ICD-10-PCS; 2019-04-29)
DX: O34.211 Maternal care for low transverse scar from previous cesarean delivery (principal); O71.5 Other obstetric injury to pelvic organs; O99.89 Other specified diseases and conditions complicating pregnancy, childbirth and the puerperium; N73.6 Female pelvic peritoneal adhesions (postinfective); Z3A.38 38 weeks gestation of pregnancy; Z37.0 Single live birth; O34.219 Maternal care for unspecified type scar from previous cesarean delivery
CPT/HCPCS: 36415; 51702; 85025; 85027; 86780; 86850; 86900; 86901; 87340; 99285; J0690; J1100; J1580; J1885; J2175; J2250; J2274; J2370; J2405; J2590; J2704; J3010; J3490; J7050

== ENCOUNTER 2019-05-09 10:43 | Outpatient (CLI) | payer OTHER ==
--- NOTE | 2019-05-09 12:51 | RAD ---
CYSTOGRAM: Date: 05/09/19 HISTORY: 33-year-old female with postop complication, laceration of bladder. Recent status. FINDINGS: 200 mL of iodinated contrast was administered into the urinary bladder via Freed catheter. Unobstruct ed retrograde flow of contrast into the urinary bladder is seen. The urinary bladder has a normal con tour without filling defects or extravasation. There is normal filling and emptying of the urinary bl adder. The catheter was not removed at the end of the exam. IMPRESSION: No evidence of urinary bladder leak. POS: [facility]
[2019-05-09] MEDS ORDERED: ISOVUE-370 76%-LOCM 1 ML ONE (15:27)
== END 2019-05-09 10:44 | disposition home or self-care (01) ==
LOC: RAD 10:43
PROVIDERS: ATTEND Family Medicine
DX: N99.89 Other postprocedural complications and disorders of genitourinary system (principal)
CPT/HCPCS: 51600; 74430; Q9966

== ENCOUNTER 2019-05-15 03:07 | Emergency (ER) | payer OTHER ==
[2019-05-15 04:16] LABS: Bacteria/HPF None Seen HPF (None Seen); Bilirubin Negative (Negative); Blood, Urine Trace (Negative); Clarity Clear (Clear); Glucose, Urine (Dipstick) Normal (Negative); Leukocyte Negative Leu/uL (Negative); Nitrite Negative (Negative); Protein, Urine (Dipstick) Negative (Neg-Trace); RBC/HPF 0-3 HPF (0-3); Squamous Epithelial 0-3 HPF (0-3); Urobilinogen Normal mg/dL (Less than 2); WBC/HPF 0-3 HPF (0-3)
[2019-05-15 04:37] LABS: #Basophils 0.1 thou/uL (0.0-0.2); #Eosinphils 0.6 thou/uL (0.0-0.7); #Lymphocytes 3.3 thou/uL (1.20-3.40); #Monocytes 0.6 thou/uL (0.11-0.59); #Neutrophils 3.2 thou/uL (1.40-6.50); %Basophils 0.9 % (0.0-1.0); %Eosinophils 7.7 % (0.0-10.0); %Monocytes 8.2 % (0.0-10.0); %Neutrophils 41.2 % (42.0-75.0); Hemoglobin 11.9 g/dL (12.0-16.0); Mean Corpuscular HGB CONC 34.8 g/dL (32.0-36.0); Mean Corpuscular Hemoglobin 31.4 pg (27.0-31.0); Mean Corpuscular Volume 90.4 fL (78.0-98.0); Mean Platelet Volume 7.8 fL (7.4-10.4); Platelet Count 248 thou/uL (130-400); RBC Distribution Width 11.6 % (11.5-14.5); Red Blood Cell (RBC) Count 3.79 mill/uL (4.20-5.40); White Blood Cell (WBC) Count 7.7 thou/uL (4.8-10.8)
[2019-05-15 04:59] LABS: ALT (SGPT) 13 U/L (8-55); AST (SGOT) 13 U/L (5-34); Alkaline Phosphatase 64 U/L (40-150); Anion Gap 14 mmol/L (10-20); BUN (Urea Nitrogen) 15 mg/dL (7.0-18.7); Bilirubin, Total 0.4 mg/dL (0.2-1.2); Calc. Creatinine Clearance 0 mL/min (70-130); Calcium 9.5 mg/dL (7.8-10.44); Carbon Dioxide 23 mmol/L (22-29); Chloride 106 mmol/L (98-107); Estimated GFR-MDRD Greater than 90; Globulin 2.7 g/dL (2.4-3.5); Glucose 98 mg/dL (70-105); Potassium 4.1 mmol/L (3.5-5.1); Protein, Total 6.7 g/dL (6.0-8.3); Sodium 139 mmol/L (136-145)
--- NOTE | 2019-05-15 09:00 | CT ---
PRELIMINARY REPORT/[facility]/EMERGENCY AFTER HOURS PROCEDURE: EXAM: CT Abdomen and Pelvis With Contrast EXAM DATE/TIME: 05/15/2019 4:50 AM CLINICAL HISTORY: 33 years old, female; Other: Pelvic; Prior surgery; Surgery date: <1 month; Patient HX: 33 y/o F pres ents to ED C/O abd pain. PT states she had a within the past month; She sustained injury to her bladder during procedure. PT was then evaluated by urology and is to urology for additional eval. TECHNIQUE: Imaging protocol: Computed tomography of the abdomen and pelvis with intravenous contrast. COMPARISON: No relevant prior studies available. FINDINGS: Lungs: No consolidations in the lung bases. Liver: No liver masses. Gallbladder and bile ducts: Normal appearance of the gallbladder. No ductal dilation. Pancreas: No pancreatic mass or ductal dilation. Spleen: No splenic masses. Adrenals: No adrenal nodules. Kidneys and ureters: No enhancing mass or hydronephrosis. Stomach and bowel: No evidence of obstruction or bowel wall thickening. Appendix: Normal appendix. Intraperitoneal space: No free pelvic fluid. Vasculature: Prominence of the bilateral gonadal veins without evidence of clot, likely related to re cent status. Lymph nodes: No lymphadenopathy. Bladder: Mild thickened tissue between the bladder and lower uterine segment. Fat stranding anterior to the bladder with anterior bladder wall thickening. Reproductive: Size of the uterus is in keeping with recent status. Anterior lower uterine segment surgical incision. The endometrium is thickened to 3.2 cm with internal heterogeneous material. No adnexal mass. Bones/joints: No suspicious bone lesions. Soft tissues: Lower pelvic surgical incision without abnormal fluid collection. IMPRESSION: 1. uterus with abnormally heterogeneously thickened endometrium up to 3.2 cm. 2. Anterior bladder wall thickening at site of incision. No evidence of bladder leak. 3. Heterogeneity between the bladder and anterior lower uterine segment could be related to bladder w all thickening or small flap hematoma. Thank you for allowing us to participate in the care of your patient. Dictated and Authenticated by: Imani Corona MD 05/15/2019 6:13 AM Central Time ([place] & [place]) FINAL REPORT CT ABDOMEN AND PELVIS WITH CONTRAST: FINDINGS/IMPRESSION: I agree with the findings and impression given in the preliminary report per [facility] physician. There is a post uterus. Post surgical changes are seen from a section with thickenin g of the anterior bladder wall. There is no evidence of a bladder leak at this time. POS: JENNA
[2019-05-15] MEDS ORDERED: ISOVUE-370 76%-LOCM 1 ML ONE (16:37)
== END 2019-05-15 06:34 | disposition home or self-care (01) ==
LOC: ERS 03:07
DX: O90.89 Other complications of the puerperium, not elsewhere classified (principal); R10.30 Lower abdominal pain, unspecified; O91.23 Nonpurulent mastitis associated with lactation; F41.9 Anxiety disorder, unspecified
CPT/HCPCS: 74177; 80053; 81003; 81015; 85025; 87086; Q9966

== ENCOUNTER 2019-07-11 13:29 | Emergency (ER) | payer MEDICAID, SELFPAY ==
[2019-07-11] MEDS ORDERED: Acetaminophen 325 MG TAB ONE (16:00)
== END 2019-07-11 16:24 | disposition home or self-care (01) ==
LOC: ERS 13:29
DX: R10.84 Generalized abdominal pain (principal); R51 Headache; F41.9 Anxiety disorder, unspecified; Y04.8XXA Assault by other bodily force, initial encounter
CPT/HCPCS: 99283

== ENCOUNTER 2021-07-02 22:16 | Emergency (ER) | payer SELFPAY ==
[2021-07-02] MEDS ORDERED: Lorazepam 2 MG/ML VIAL ONE (22:35)
[2021-07-02 22:43] LABS: #Basophils 0.1 thou/uL (0.0-0.2); #Eosinphils 0.1 thou/uL (0.0-0.7); #Lymphocytes 3.9 thou/uL (1.20-3.40); #Monocytes 0.6 thou/uL (0.11-0.59); #Neutrophils 3.9 thou/uL (1.40-6.50); %Eosinophils 1.2 % (0.0-10.0); %Lymphocytes 45.3 % (21.0-51.0); %Monocytes 6.4 % (0.0-10.0); Hemoglobin 14.1 g/dL (12.0-16.0); Mean Corpuscular HGB CONC 35.7 g/dL (32.0-36.0); Mean Corpuscular Hemoglobin 31.8 pg (27.0-31.0); Mean Corpuscular Volume 89.1 fL (78.0-98.0); Mean Platelet Volume 8.8 fL (7.4-10.4); Platelet Count 254 thou/uL (130-400); RBC Distribution Width 11.2 % (11.5-14.5); Red Blood Cell (RBC) Count 4.45 mill/uL (4.20-5.40); White Blood Cell (WBC) Count 8.6 thou/uL (4.8-10.8)
[2021-07-02 23:03] LABS: Anion Gap 16 mmol/L (10-20); BUN (Urea Nitrogen) 13 mg/dL (7.0-18.7); Calc. Creatinine Clearance 0 mL/min (70-130); Calcium 9.2 mg/dL (7.8-10.44); Carbon Dioxide 22 mmol/L (22-29); Chloride 108 mmol/L (98-107); Glucose 110 mg/dL (70-105); Potassium 3.7 mmol/L (3.5-5.1); Sodium 142 mmol/L (136-145)
== END 2021-07-02 23:36 | disposition home or self-care (01) ==
LOC: ERS 22:16
DX: R07.9 Chest pain, unspecified (principal)
CPT/HCPCS: 71045; 80048; 84484; 85025; 93005; 96374; J2060

== ENCOUNTER 2022-03-22 21:16 | Emergency (ER) | payer SELFPAY ==
[2022-03-22] MEDS ORDERED: HYDROcodone/Acetaminophen 5/325 mg Tablet ONE (22:31)
== END 2022-03-22 23:10 | disposition home or self-care (01) ==
LOC: ERS 21:16
DX: S93.402A Sprain of unspecified ligament of left ankle, initial encounter (principal); X58.XXXA Exposure to other specified factors, initial encounter

== ENCOUNTER 2024-10-19 21:18 | Emergency (ER) | payer SELFPAY ==
[2024-10-19] MEDS ORDERED: LORazepam 2 MG/ML SYR.(CARPUJECT) ONE (22:02)
== END 2024-10-19 22:44 | disposition home or self-care (01) ==
LOC: ERS 21:18
DX: F41.0 Panic disorder [episodic paroxysmal anxiety] (principal)
CPT/HCPCS: 96372; 99283; J2060